=== PATIENT | female | born 1970 | race Hispanic/Latino ===

== ENCOUNTER 2019-01-20 17:40 | Emergency (ER) | payer OTHER ==
[~2019-01-20] VITALS: Ht 157.5 cm; Wt 60.0 kg
[~2019-01-20 17:40] MED LIST: BACTRIM DS1 TAB PO; IRON325 MG PO; MULTIVITAMIN; NORCO1 TA1 PO; TYLENOL 500MG TAB PO
[2019-01-20] MEDS ORDERED: TRAMADOL HCL50 MG PO (19:19)
[2019-01-20] MEDS ORDERED: VOLTAREN - GENE75 MG PO (19:19)
[2019-01-20 19:43] VITALS: BP 122/82
== END 2019-01-20 19:44 | disposition home or self-care (01) | DRG 558 ==
LOC: ED 17:40
DX: M75.91 Shoulder lesion, unspecified, right shoulder (principal)

== ENCOUNTER 2020-10-23 | Emergency (ER) | payer OTHER ==
[~2020-10-23] MED LIST changes: +TRAMADOL HCL50 MG PO; +VOLTAREN - GENE75 MG PO
[2020-10-23 20:19] LABS: URINE BILIRUBIN - DIPSTICK NEGATIVE (NEGATIVE); URINE BLOOD DIPSTICK NEGATIVE (NEGATIVE); URINE COLOR YELLOW; URINE GLUCOSE - DIPSTICK NEGATIVE (NEGATIVE); URINE KETONE NEGATIVE (NEGATIVE); URINE PH 6.5 (4.5-8.0); URINE PROTEIN - DIPSTICK NEGATIVE (NEG-TRACE); URINE UROBILINOGEN - DIPSTICK 0.2 E.U./dL (0.2)
[2020-10-23 20:25] LABS: URINE LEUK ESTERASE SMALL (NEGATIVE); URINE NITRITE - DIPSTICK NEGATIVE (Negative)
[2020-10-23 20:31] LABS: URINE RBC 0-2 RBC/hpf (0-5); URINE SQUAMOUS EPITHELIAL CELL FEW EPI/hpf (0-FEW)
[2020-10-23 20:50] LABS: HEMATOCRIT 35.7 % (37.0-47.0); HEMOGLOBIN 11.6 g/dl (12.0-16.0); IMMATURE GRANULOCYTES 0.6 % (0.0-5.0); MEAN CORPUSCULAR HGB CONC 32.5 g/dL CAL (32.0-36.0); NEUT# 5.05 thou/uL (2.00-7.15); RED BLOOD COUNT 4.15 mill/uL (4.20-5.60); RED CELL DISTRI WIDTH 13.9 % (11.5-15.5)
[2020-10-23 21:14] LABS: ALBUMIN 4.8 g/dL (3.2-5.0); ALKALINE PHOSPHATASE 102 u/l (38-126); BUN 14 mg/dL (7-17); BUN/CREATININE RATIO 21 (12-20 (CALC)); CARBON DIOXIDE 27 mmol/l (22-30); CHLORIDE 96 mmol/l (95-108); CREATININE 0.7 mg/dL (0.5-1.0); GFR > 60 ML/MIN (>=60 (CALC)); GFR FOR AFR.AMER. > 60 ML/MIN (>=60 (CALC)); LIPASE 56 u/l (23-300); POTASSIUM 3.7 mmol/l (3.5-5.1); SGOT/AST 35 u/l (14-36); TOTAL PROTEIN 8.4 g/dL (6.3-8.2)
[2020-10-23 21:15] LABS: ANION GAP 13 (6-22 (CALC)); BILIRUBIN, TOTAL 0.4 mg/dL (0.0-1.4); SODIUM 132 mmol/l (137-146)
[2020-10-23] MEDS ORDERED: TAMSULOSIN0.4 MG PO (21:50)
[2020-10-23] MEDS ORDERED: HYDROCO/APAP1 TA9 PO (21:50)
[2020-10-23] MEDS ORDERED: ZOFRAN4 MG/TAB PO (21:50)
== END 2020-10-23 22:18 | disposition home or self-care (01) | DRG 694 ==
DX: N13.2 Hydronephrosis with renal and ureteral calculous obstruction (principal)

== ENCOUNTER 2022-08-24 19:28 | Emergency (ER) | payer OTHER ==
[~2022-08-24] VITALS: Ht 157.5 cm; Wt 70.0 kg
[~2022-08-24 19:28] MED LIST changes: +HYDROCO/APAP1 TA9 PO; +TAMSULOSIN0.4 MG PO; +ZOFRAN4 MG/TAB PO
[2022-08-24 19:32] VITALS: BP 123/88
[2022-08-24 19:45] VITALS: BP 119/81
[2022-08-24 20:01] VITALS: BP 116/63
[2022-08-24] MEDS ORDERED: DOXY-CAPS100 MG PO (20:10)
[2022-08-24] MEDS ORDERED: OMNI-PAC300 MG PO (20:10)
[2022-08-24 20:15] VITALS: BP 107/74
[2022-08-24 21:45] VITALS: BP 107/74
== END 2022-08-24 21:55 | disposition home or self-care (01) | DRG 605 ==
LOC: ED 19:28
PROC: 0HQGXZZ Repair Left Hand Skin, External Approach (ICD-10-PCS; principal; 2022-08-24)
DX: S61.412A Laceration without foreign body of left hand, initial encounter (principal); W26.8XXA Contact with other sharp object(s), not elsewhere classified, initial encounter

== ENCOUNTER 2024-02-23 00:44 | Emergency (ER) | payer OTHER ==
[~2024-02-23] VITALS: Ht 157.5 cm; Wt 68.0 kg
[~2024-02-23 00:44] MED LIST changes: +DOXY-CAPS100 MG PO; +OMNI-PAC300 MG PO
[2024-02-23 01:03] VITALS: BP 135/114
[2024-02-23] MEDS ORDERED: TAMSULOSIN HCL 0.4 MG CAP PO STA (01:08)
[2024-02-23] MEDS ORDERED: SODIUM CHLORIDE 0.9% 1,000 ML IV STA (01:08)
[2024-02-23] MEDS ORDERED: KETOROLAC TROMETHAMINE 30 MG/ML SDV IV ONE (01:10)
[2024-02-23] MEDS ORDERED: PROMETHAZINE HCL 25 MG/ML AMP IV ONE (01:10)
[2024-02-23 01:37] LABS: EOS% 16.2 % (0-8); HEMATOCRIT 34.7 % (37.0-47.0); HEMOGLOBIN 11.3 g/dl (12.0-16.0); IMMATURE GRANULOCYTES 0.4 % (0.0-5.0); LYMPH% 37.6 % (15-41); MEAN CELL VOLUME 85.5 fL CALC (80.0-100.0); MEAN CORPUSCULAR HGB 27.8 pG CALC (26.0-32.0); MEAN CORPUSCULAR HGB CONC 32.6 g/dL CAL (32.0-36.0); MONO% 6.8 % (2-13); NEUT# 3.6 thou/uL (2.00-7.15); RED BLOOD COUNT 4.06 mill/uL (4.20-5.60); RED CELL DISTRI WIDTH 13.3 % (11.5-15.5)
[2024-02-23 01:38] LABS: URINE BILIRUBIN - DIPSTICK Negative (NEGATIVE); URINE BLOOD DIPSTICK Negative (NEGATIVE); URINE GLUCOSE - DIPSTICK Negative (NEGATIVE); URINE KETONE Negative (NEGATIVE); URINE LEUK ESTERASE Trace (NEGATIVE); URINE NITRITE - DIPSTICK Negative (Negative); URINE PH 7.5 (4.5-8.0); URINE PROTEIN - DIPSTICK Negative (NEG-TRACE); URINE SPECIFIC GRAVITY 1.015; URINE UROBILINOGEN - DIPSTICK 0.2 E.U./dL (0.2)
[2024-02-23 01:38] LABS: ALBUMIN 4.5 g/dL (3.2-5.0); BILIRUBIN, TOTAL 0.3 mg/dL (0.02-1.3); CREATININE 0.6 mg/dL (0.5-1.0); POTASSIUM 3.5 mmol/l (3.5-5.1); TOTAL PROTEIN 7.8 g/dL (6.3-8.2)
[2024-02-23 01:45] LABS: URINE COLOR Yellow
[2024-02-23] MEDS ORDERED: MORPHINE SULFATE 4 MG/ML VIAL IV ONE (03:10)
[2024-02-23] MEDS ORDERED: PROCHLORPERAZINE EDISYLATE 10 MG/2 ML SDV IV ONE (03:10)
[2024-02-23] MEDS ORDERED: DiphenhydrAMINE HCL 50 MG/ML SDV IV ONE (03:30)
[2024-02-23] MEDS ORDERED: LORTAB 5/3255 MG PO (03:30)
[2024-02-23] MEDS ORDERED: IBUPROFEN600 MG PO (03:30)
[2024-02-23] MEDS ORDERED: TAMSULOSIN0.4 MG PO (03:30)
[2024-02-23 03:48] VITALS: BP 124/89
== END 2024-02-23 03:58 | disposition home or self-care (01) | DRG 694 ==
LOC: ED 00:44
PROVIDERS: Family Medicine
DX: N13.30 Unspecified hydronephrosis (principal)

== ENCOUNTER 2024-04-17 11:33 | Emergency (ER) | payer OTHER ==
[~2024-04-17] VITALS: Ht 157.5 cm; Wt 54.0 kg
[~2024-04-17 11:33] MED LIST changes: +IBUPROFEN600 MG PO; +LORTAB 5/3255 MG PO
[2024-04-17 11:44] VITALS: BP 115/85
[2024-04-17 11:45] VITALS: BP 107/74
[2024-04-17] MEDS ORDERED: ONDANSETRON HCl 4 MG/2 ML SDV IV ONE ×2 (11:50→15:20)
[2024-04-17] MEDS ORDERED: KETOROLAC TROMETHAMINE 30 MG/ML SDV IV ONE (11:50)
[2024-04-17] MEDS ORDERED: SODIUM CHLORIDE 0.9% 1,000 ML IV ONE (11:50)
[2024-04-17 12:03] LABS: BASO% 0.9 % (0-3); EOS% 16.9 % (0-8); HEMATOCRIT 37.2 % (37.0-47.0); HEMOGLOBIN 12.3 g/dl (12.0-16.0); LYMPH% 41.9 % (15-41); MEAN CELL VOLUME 85.1 fL CALC (80.0-100.0); MEAN CORPUSCULAR HGB 28.1 pG CALC (26.0-32.0); MEAN CORPUSCULAR HGB CONC 33.1 g/dL CAL (32.0-36.0); MONO% 5.6 % (2-13); NEUT# 2.72 thou/uL (2.00-7.15); NEUT% 34.7 % (42-76); RED BLOOD COUNT 4.37 mill/uL (4.20-5.60); RED CELL DISTRI WIDTH 13.3 % (11.5-15.5)
[2024-04-17 12:08] LABS: ALBUMIN 4.7 g/dL (3.2-5.0); CREATININE 0.6 mg/dL (0.5-1.0)
[2024-04-17 12:09] LABS: BILIRUBIN, TOTAL 0.7 mg/dL (0.02-1.3)
[2024-04-17 12:15] VITALS: BP 106/67
[2024-04-17 12:30] VITALS: BP 107/67
[2024-04-17 12:45] VITALS: BP 105/65
[2024-04-17 13:24] LABS: URINE BILIRUBIN - DIPSTICK Negative (NEGATIVE); URINE BLOOD DIPSTICK Negative (NEGATIVE); URINE COLOR Yellow; URINE GLUCOSE - DIPSTICK Negative (NEGATIVE); URINE KETONE Negative (NEGATIVE); URINE LEUK ESTERASE Negative (NEGATIVE); URINE NITRITE - DIPSTICK Negative (Negative); URINE PH 6.5 (4.5-8.0); URINE PROTEIN - DIPSTICK Negative (NEG-TRACE); URINE UROBILINOGEN - DIPSTICK 0.2 E.U./dL (0.2)
[2024-04-17] MEDS ORDERED: HYDROmorphone HCL 2 MG/AMP IV ONE (15:20)
[2024-04-17] MEDS ORDERED: ZOFRAN4 MG/TAB PO (15:24)
[2024-04-17] MEDS ORDERED: TORADOL PO (15:24)
[2024-04-17] MEDS ORDERED: TAMSULOSIN0.4 MG PO (15:24)
[2024-04-17] MEDS ORDERED: HYDROCO/APAP1 TA9 PO (15:24)
[2024-04-17 15:47] VITALS: BP 105/65
== END 2024-04-17 15:47 | disposition home or self-care (01) | DRG 694 ==
LOC: ED 11:33
PROVIDERS: Family Medicine
DX: N20.1 Calculus of ureter (principal); Z87.442 Personal history of urinary calculi
CPT/HCPCS: Q9967

== ENCOUNTER 2024-04-17 21:04 | Emergency (ER) | payer OTHER ==
[~2024-04-17] VITALS: Ht 157.5 cm; Wt 64.0 kg
[~2024-04-17 21:04] MED LIST changes: +TORADOL PO
[2024-04-17 21:39] VITALS: BP 116/71
[2024-04-17 21:45] VITALS: BP 118/70
[2024-04-17] MEDS ORDERED: HYDROcodone 5 MG/Acetaminophen 325 MG/COMBO PO ONE (21:45)
[2024-04-17] MEDS ORDERED: HYDROmorphone HCL 2 MG/AMP IM ONE (21:45)
[2024-04-17] MEDS ORDERED: TAMSULOSIN HCL 0.4 MG CAP PO ONE (21:45)
[2024-04-17] MEDS ORDERED: PROMETHAZINE HCL 25 MG/ML AMP IM ONE (21:45)
[2024-04-17] MEDS ORDERED: KETOROLAC TROMETHAMINE 30 MG/ML SDV IM ONE (21:45)
[2024-04-17 22:00] VITALS: BP 124/83
[2024-04-17 22:15] VITALS: BP 118/71
== END 2024-04-17 22:12 | disposition home or self-care (01) | DRG 694 ==
LOC: ED 21:04
DX: N20.1 Calculus of ureter (principal); Z87.442 Personal history of urinary calculi

== ENCOUNTER 2024-09-27 21:01 | Emergency (ER) | payer OTHER ==
[~2024-09-27] VITALS: Ht 157.5 cm; Wt 61.0 kg
[2024-09-27 22:20] LABS: URINE BLOOD DIPSTICK Large (NEGATIVE); URINE COLOR Red; URINE GLUCOSE - DIPSTICK Negative (NEGATIVE); URINE KETONE Trace mg/dL (NEGATIVE); URINE LEUK ESTERASE Trace (NEGATIVE); URINE MUCUS RARE hpf (NONE-FEW); URINE NITRITE - DIPSTICK Negative (Negative); URINE PROTEIN - DIPSTICK >=300 mg/dL (NEG-TRACE); URINE RBC TNTC RBC/hpf (0-5); URINE SPECIFIC GRAVITY 1.015; URINE UROBILINOGEN - DIPSTICK 0.2 E.U./dL (0.2)
[2024-09-27 23:58] VITALS: BP 125/69
== END 2024-09-27 23:58 | disposition home or self-care (01) | DRG 696 ==
LOC: ED 21:01
PROVIDERS: Emergency Medicine
DX: R31.9 Hematuria, unspecified (principal); N20.0 Calculus of kidney; Z93.6 Other artificial openings of urinary tract status